=== PATIENT | male | born 1940 | race Caucasian/White ===

== ENCOUNTER 2017-04-13 16:52 | Emergency (ER) | payer BC, MEDICARE, OTHER ==
[~2017-04-13] VITALS: Ht 182.9 cm; Wt 83.6 kg
[2017-04-13 17:00] VITALS: BP 127/78
[2017-04-13] MEDS ORDERED: LIDOCAINE 1%, 20ML SQ ONE (17:30)
[2017-04-13] MEDS ORDERED: LIDOCAINE 1%, 20ML ONE (17:39)
== END 2017-04-13 19:05 | disposition home or self-care (01) ==
LOC: ED 18:59
DX: S61.012A Laceration without foreign body of left thumb without damage to nail, initial encounter (principal); E11.9 Type 2 diabetes mellitus without complications; X58.XXXA Exposure to other specified factors, initial encounter; Y93.89 Activity, other specified; Y99.8 Other external cause status; Y92.099 Unspecified place in other non-institutional residence as the place of occurrence of the external cause
CPT/HCPCS: 12002; 99283